=== PATIENT | male | born 1990 | race Caucasian/White ===

== ENCOUNTER 2025-09-14 13:29 | Emergency (ER) | payer BC ==
[~2025-09-14] VITALS: Ht 177.8 cm; Wt 90.0 kg
[2025-09-14 13:32] VITALS: BP 126/84; PULSE 72; RESP 19; TEMP 36.8; O2SAT 98
[2025-09-14] MEDS: TETANUS, DIPHTHERIA, PERTUSSIS VAC/PF 0.5ML (>10YR OLD) IM ONE ×2 (15:19→16:38)
== END 2025-09-14 16:40 | disposition home or self-care (01) ==
LOC: ER 13:29
DX: S01.511A Laceration without foreign body of lip, initial encounter (principal); R55 Syncope and collapse; R42 Dizziness and giddiness; R11.2 Nausea with vomiting, unspecified; W10.8XXA Fall (on) (from) other stairs and steps, initial encounter; Y93.89 Activity, other specified; Y92.89 Other specified places as the place of occurrence of the external cause; Y99.8 Other external cause status
CPT/HCPCS: 90715; 93005; 12011; 90471; 99283; Z7610